=== PATIENT | male | born 1985 | race Caucasian/White ===

== ENCOUNTER 2023-12-17 17:10 | Emergency (ER) | payer OTHER, SELFPAY ==
[2023-12-17] VITALS (40 sets, daily range): BP systolic 138–163; BP diastolic 82–102; PULSE 76–98; RESP 9–18; TEMP 36.6; O2SAT 96–100
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
[2023-12-17 17:46] LABS: Abs Immature Grans 0.08 10^3/uL (0.0-0.06); Absolute Basophil Count 0.05 10^3/uL (0.0-0.2); Absolute Lymphocyte Count 1.93 10^3/uL (1.2-3.4); Absolute Monocyte Count 1.08 10^3/uL (0.1-0.8); Basophils % 0.3 %; Eosinophils % 1.4 %; HCT 45.5 % (40.0-50.0); HGB 15.2 g/dL (13.5-17.5); Immature Grans % 0.5 %; Lymphocytes % 11.1 %; MCH 30.8 pg (27.0-33.0); MCHC 33.4 % (32.0-36.0); MCV 92 fL (80-95); MPV 10.2 fL (8.0-11.0); Monocytes % 6.2 %; Neutrophils % 80.5 %; Platelet Count 303 10^3/uL (130-400); RBC 4.94 10^6/uL (4.36-5.78); RDW 11.9 % (11.8-14.1); RDW-SD 39.9 fL; WBC 17.35 10^3/uL (4.4-10.8)
[2023-12-17 17:47] LABS: Absolute Eosinophil Count 0.24 10^3/uL (0.0-0.7); Absolute Neutrophil Count 13.97 10^3/uL (1.2-6.7)
[2023-12-17 18:06] LABS: ALT 46 U/L (16-63); AST 30 U/L (15-37); Albumin 4.5 g/dL (3.4-5.0); Alkaline Phosphatase 91 U/L (46-116); Anion Gap 7.4 mmol/L (3-11); BUN 28 mg/dL (7-18); Bilirubin, Total 0.25 mg/dL (0.2-1.0); CO2 28.6 mmol/L (21.0-32.0); CREATININE 1.3 mg/dL (0.70-1.30); Calcium 9.9 mg/dL (8.5-10.1); Chloride 101 mmol/L (98-107); Estimated GFR 73.01 (mL/min/1.73m2); Glucose 101 mg/dL (74-106); Lipase 20 U/L (16-77); Magnesium 2.3 mg/dL (1.8-2.4); Sodium 137 mmol/L (136-145); Total Protein 8.1 g/dL (6.4-8.2); Troponin I < 50 ng/L (< or =60)
[2023-12-17] MEDS: Omnipaque 350 MG/ML 100 ML BTL IJ (19:29)
[2023-12-17] MEDS: Normal Saline - Diluent 50 ML VIAL IJ (19:31)
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
[2023-12-17] MEDS: Lidocaine 1% Pres-Free W/EPI 1/200,000 30 ML VIAL IJ (21:16)
--- NOTE | 2023-12-17 22:33 | W.ED.PROC ---
Date of service: 12/17/23 Time of Service: 22:33 Procedures Laceration Laceration 1: Site: face Side (If applicable): left Size (cm): 1 Description: irregular Depth: simple, single layer Local anesthetic: Lidocaine 1% and with Epi Amount of anesthesia used (mL): 1.5 Pre-repair: irrigated extensively and deep structures intact Skin layer closed with: nylon Size (cm): 6-0 Number of sutures: 3 Technique: simple, interrupted Medical Decision Making Quality:SDOH Health Related Social Needs: No Data to Display
== END 2023-12-17 22:45 | disposition home or self-care (01) ==
PROVIDERS: Emergency Provider Nurse Practitioner Family
DX: S02.2XXA Fracture of nasal bones, initial encounter for closed fracture (principal); S02.40CA Maxillary fracture, right side, initial encounter for closed fracture; S01.81XA Laceration without foreign body of other part of head, initial encounter; S10.91XA Abrasion of unspecified part of neck, initial encounter; S20.312A Abrasion of left front wall of thorax, initial encounter; S60.418A Abrasion of other finger, initial encounter; S60.512A Abrasion of left hand, initial encounter; Z23 Encounter for immunization; V86.59XA Driver of other special all-terrain or other off-road motor vehicle injured in nontraffic accident, initial encounter
CPT/HCPCS: 12011; 36415; 74177; 80053; 83690; 90471; 90715; 99285; 70450; 70486; 71260; 72125; 73130; 73630; 83735; 84484; 85025; 99284; J2004; J3490